=== PATIENT | male | born 2000 | race Caucasian/White ===

== ENCOUNTER 2019-01-02 12:27 | Emergency (ER) | payer SELFPAY ==
--- NOTE | 2019-01-02 13:14 | ER Document Report ---
ED Medical Screen (RME) - General Chief Complaint: Numbness of Face Stated Complaint: FACE NUMBNESS Time Seen by Provider: 01/02/19 13:09 Notes: Patient presents complaining of [id number] sensation with numbness to the face that has been off and on for the past 8 months although became constant over the past 6 hours. Patient also complains of paresthesia to the extremities and pain to the toes. Patient states that he does feel faint. Patient denies any medical history and denies taking any medications. I have greeted and performed a rapid initial assessment of this patient. A comprehensive ED assessment and evaluation of the patient, analysis of test results and completion of the medical decision making process will be conducted by additional ED providers. TRAVEL OUTSIDE OF THE [place] IN LAST 30 DAYS: No - Related Data Allergies/Adverse Reactions: No Known Allergies Allergy (Verified 01/02/19 13:04) Past Medical History - Social History Chew tobacco use (# tins/day): No Frequency of alcohol use: None Drug Abuse: None Physical Exam - Vital signs Vitals: Temp Pulse Resp BP Pulse Ox 98.9 F 90 16 130/79 H 99 01/02/19 12:33 01/02/19 12:33 01/02/19 12:33 01/02/19 12:33 01/02/19 12:33 - Cardiovascular Rhythm: Regular Heart sounds: S1 appreciated, S2 appreciated Course - Vital Signs Vital signs: Temp Pulse Resp BP Pulse Ox 98.9 F 90 16 130/79 H 99 01/02/19 12:33 01/02/19 12:33 01/02/19 12:33 01/02/19 12:33 01/02/19 12:33
[2019-01-02 14:29] LABS: ABSOLUTE LYMPHOCYTES (AUTO) 1.8 10^3/uL (0.5-4.7); ABSOLUTE MONOCYTES (AUTO) 0.6 10^3/uL (0.1-1.4); ABSOLUTE NEUT (AUTO) 5.8 10^3/uL (1.7-8.2); BASOPHILS % (AUTO) 0.4 % (0-2); EOSINOPHILS % (AUTO) 0.6 % (0-6); HEMATOCRIT 47.1 % (37.9-51.0); HEMOGLOBIN 16.1 g/dL (13.5-17.0); LYMPHOCYTES % (AUTO) 21.6 % (13-45); MEAN CORPUSCULAR HEMOGLOBIN 29.8 pg (27.0-33.4); MEAN CORPUSCULAR HGB CONC 34.1 g/dL (32.0-36.0); MEAN CORPUSCULAR VOLUME 87 fl (80-97); MONOCYTES % (AUTO) 7.8 % (3-13); PLATELET COUNT 303 10^3/uL (150-450); RED BLOOD COUNT 5.39 10^6/uL (4.35-5.55); RED CELL DISTRIBUTION WIDTH 13.7 % (11.5-14.0); SEGMENTED NEUTROPHILS % (AUTO) 69.6 % (42-78); TOTAL CELLS COUNTED % (AUTO) 100 %; WHITE BLOOD COUNT 8.3 10^3/uL (4.0-10.5)
[2019-01-02 14:38] LABS: AMORPHOUS SEDIMENT,URINE TRACE /HPF; APPEARANCE,URINE CLOUDY; BILIRUBIN,URINE NEGATIVE (NEGATIVE); COLOR,URINE YELLOW; GLUCOSE, URINE NEGATIVE (NEGATIVE); KETONES,URINE 80 mg/dL (NEGATIVE); LEUKOCYTE ESTERASE,URINE NEGATIVE (NEGATIVE); NITRITE,URINE NEGATIVE (NEGATIVE); PROTEIN,URINE NEGATIVE (NEGATIVE); URINE SPECIFIC GRAVITY 1.014; UROBILINOGEN,URINE NEGATIVE mg/dL (<2.0)
[2019-01-02 14:44] LABS: ALBUMIN 5.2 g/dL (3.5-5.0); ALKALINE PHOSPHATASE 78 U/L (38-126); ANION GAP 13 (5-19); ASPARTATE AMINO TRANSFERASE 28 U/L (17-59); BILIRUBIN,DIRECT 0.1 mg/dL (0.0-0.4); BILIRUBIN,TOTAL 2.7 mg/dL (0.2-1.3); BLOOD UREA NITROGEN 10 mg/dL (7-20); CALCIUM 10.1 mg/dL (8.4-10.2); CARBON DIOXIDE 25 mmol/L (22-30); CHLORIDE 103 mmol/L (98-107); GLUCOSE 81 mg/dL (75-110); POTASSIUM 4.2 mmol/L (3.6-5.0); TOTAL PROTEIN 8.1 g/dL (6.3-8.2)
[2019-01-02 14:50] LABS: URINE AMPHETAMINES SCREEN NEGATIVE; URINE BARBITURATES SCREEN NEGATIVE; URINE BENZODIAZEPINES SCREEN NEGATIVE; URINE COCAINE SCREEN NEGATIVE; URINE MARIJUANA (THC) SCREEN UNCONFIRMED POSITIVE; URINE METHADONE SCREEN NEGATIVE; URINE PHENCYCLIDINE SCREEN NEGATIVE
--- NOTE | 2019-01-02 16:34 | ER Document Report ---
ED General - General Chief Complaint: Numbness of Face Stated Complaint: FACE NUMBNESS Time Seen by Provider: 01/02/19 13:09 Notes: RME NOTE: Patient presents complaining of [id number] sensation with numbness to the face that has been off and on for the past 8 months although became constant over the past 6 hours. Patient also complains of paresthesia to the extremities and pain to the toes. Patient states that he does feel faint. Patient denies any medical history and denies taking any medications. MY HPI: Patient is a 18-year-old male history of depression and anxiety presents to the emergency department for multiple complaints. Patient states he did have a medical marijuana card when he lived in [place]. States he moved to [place] recently and feels as though he is more anxious. States he has been smoking marijuana with a friend. He is unsure of exactly where said friend gets the marijuana. Patient states he has had generalized tingling in his face and all 4 extremities intermittently for the last couple of months. Patient's denying any headache, nausea, vomiting, diarrhea, fevers. Patient does have a rash on his chest which he states he was diagnosed with tinea versicolor approximately 2 years ago. States he is not using any medications for same. Upon my assessment patient is denying all complaints. States initially he was feeling anxious and unsure of what was going on which is why presented to the emergency room. TRAVEL OUTSIDE OF THE [place] IN LAST 30 DAYS: No - Related Data Allergies/Adverse Reactions: No Known Allergies Allergy (Verified 01/02/19 13:04) Past Medical History - General Information source: Patient - Social History Smoking Status: Never Smoker Chew tobacco use (# tins/day): No Frequency of alcohol use: None Drug Abuse: None Family History: Reviewed & Not Pertinent Patient has suicidal ideation: No Patient has homicidal ideation: No Psychiatric Medical History: Reports: Hx Depression - anxiety Review of Systems - Review of Systems Constitutional: denies: Fever EENT: No symptoms reported Cardiovascular: denies: Chest pain, Palpitations, Dyspnea Respiratory: denies: Short of breath Gastrointestinal: No symptoms reported Genitourinary: No symptoms reported Male Genitourinary: No symptoms reported Musculoskeletal: denies: Back pain, Muscle pain, Muscle stiffness, Neck pain, Leg swelling, Ankle swelling Skin: See HPI Hematologic/Lymphatic: No symptoms reported Neurological/Psychological: Depression, Anxiety. denies: Hallucinations, Homicidal ideation, Seizure, Lost consciousness, Speech impairment, Numbness, Suicidal ideation Physical Exam - Vital signs Vitals: Temp Pulse Resp BP Pulse Ox 98.9 F 90 16 130/79 H 99 01/02/19 12:33 01/02/19 12:33 01/02/19 12:33 01/02/19 12:33 01/02/19 12:33 - Notes Notes: GENERAL: Alert, interacts well. No acute distress. HEAD: Normocephalic, atraumatic. EYES: Pupils equal, round, and reactive to light. Extraocular movements intact. ENT: Oral mucosa moist, tongue midline. NECK: Full range of motion. Supple. Trachea midline. LUNGS: Clear to auscultation bilaterally, no wheezes, rales, or rhonchi. No respiratory distress. HEART: Regular rate and rhythm. No murmur ABDOMEN: Soft, non-tender. Non-distended. Bowel sounds present in all 4 quadrants. EXTREMITIES: Moves all 4 extremities spontaneously. No edema, normal radial and dorsalis pedis pulses bilaterally. No cyanosis. 5 out of 5 strength noted all 4 extremities. BACK: no cervical, thoracic, lumbar midline tenderness. No saddle anesthesia, normal distal neurovascular exam. NEUROLOGICAL: Alert and oriented x3. Normal speech. cranial nerves II through XII grossly intact PSYCH: Normal affect, normal mood. SKIN: Warm, dry, normal turgor. Generalized flat erythematous circular intermittent lesions noted to patient's chest and bilateral upper forearms. Course - Re-evaluation Re-evalutation: 01/02/19 16:32 Laboratory 01/02/19 01/02/19 01/02/19 14:10 14:10 14:10 WBC 8.3 RBC 5.39 Hgb 16.1 Hct 47.1 MCV 87 MCH 29.8 MCHC 34.1 RDW 13.7 Plt Count 303 Lymph % (Auto) 21.6 Bay % (Auto) 7.8 Eos % (Auto) 0.6 Baso % (Auto) 0.4 Absolute Neuts (auto) 5.8 Absolute Lymphs (auto) 1.8 Absolute Monos (auto) 0.6 Absolute Eos (auto) 0.0 Absolute Basos (auto) 0.0 Seg Neutrophils % 69.6 Sodium 140.7 Potassium 4.2 Chloride 103 Carbon Dioxide 25 Anion Gap 13 BUN 10 Creatinine 0.88 Est GFR ( Amer) > 60 Est GFR (MDRD) Non-Af > 60 Glucose 81 Calcium 10.1 Total Bilirubin 2.7 H Direct Bilirubin 0.1 Neonat Total Bilirubin Not Reportable Neonat Direct Bilirubin Not Reportable Neonat Indirect Bili Not Reportable AST 28 ALT 27 Alkaline Phosphatase 78 Total Protein 8.1 Albumin 5.2 H Urine Color YELLOW Urine Appearance CLOUDY Urine pH 8.0 Ur Specific [place] 1.014 Urine Protein NEGATIVE Urine Glucose (UA) NEGATIVE Urine Ketones 80 H Urine Blood NEGATIVE Urine Nitrite NEGATIVE Urine Bilirubin NEGATIVE Urine Urobilinogen NEGATIVE Ur Leukocyte Esterase NEGATIVE Urine WBC (Auto) 5 Urine RBC (Auto) 1 Urine Bacteria (Auto) TRACE Amorphous Sediment Auto TRACE Urine Mucus (Auto) RARE Urine Ascorbic Acid NEGATIVE Urine Opiates Screen Urine Methadone Screen Ur Barbiturates Screen Ur Phencyclidine Scrn Ur Amphetamines Screen U Benzodiazepines Scrn Urine Cocaine Screen U Marijuana (THC) Screen 01/02/19 14:10 WBC RBC Hgb Hct MCV MCH MCHC RDW Plt Count Lymph % (Auto) Bay % (Auto) Eos % (Auto) Baso % (Auto) Absolute Neuts (auto) Absolute Lymphs (auto) Absolute Monos (auto) Absolute Eos (auto) Absolute Basos (auto) Seg Neutrophils % Sodium Potassium Chloride Carbon Dioxide Anion Gap BUN Creatinine Est GFR ( Amer) Est GFR (MDRD) Non-Af Glucose Calcium Total Bilirubin Direct Bilirubin Neonat Total Bilirubin Neonat Direct Bilirubin Neonat Indirect Bili AST ALT Alkaline Phosphatase Total Protein Albumin Urine Color Urine Appearance Urine pH Ur Specific [place] Urine Protein Urine Glucose (UA) Urine Ketones Urine Blood Urine Nitrite Urine Bilirubin Urine Urobilinogen Ur Leukocyte Esterase Urine WBC (Auto) Urine RBC (Auto) Urine Bacteria (Auto) Amorphous Sediment Auto Urine Mucus (Auto) Urine Ascorbic Acid Urine Opiates Screen NEGATIVE Urine Methadone Screen NEGATIVE Ur Barbiturates Screen NEGATIVE Ur Phencyclidine Scrn NEGATIVE Ur Amphetamines Screen NEGATIVE U Benzodiazepines Scrn NEGATIVE Urine Cocaine Screen NEGATIVE U Marijuana (THC) Screen UNCONFIRMED POSITIVE Patient's EKG shows sinus rhythm rate of 76, QTc 396, no ST segment elevations or depressions noted, reviewed by Dr. Cloud. Upon my assessment patient is denying all complaints. I discussed with him at length he should stop smoking marijuana unless it is medically necessary and he has a prescription for same. I have also discussed following up at [facility] as patient is uninsured. I feel as though this may be the patient's generalized anxiety. Patient was self treating with marijuana and states he has not been smoking "as much" within the last couple of months. Patient's denying suicidal homicidal ideations. At this time will discharge with return precautions and follow-up recommendations. Verbal discharge instructions given a the bedside and opportunity for questions given. Medication warnings reviewed. Patient is in agreement with this plan and has verbalized understanding of return precautions and the need for primary care follow-up in the next 24-72 hours. This medical record was dictated with voice recognizing software. There may be grammatical, syntax errors that are unintended. 01/02/19 16:35 Upon discharge patient does ask for 2 days off of work. - Vital Signs Vital signs: Temp Pulse Resp BP Pulse Ox 98.9 F 90 16 130/79 H 99 01/02/19 12:33 01/02/19 12:33 01/02/19 12:33 01/02/19 12:33 01/02/19 12:33 - Laboratory Result Diagrams: 01/02/19 14:10 01/02/19 14:10 Laboratory results interpreted by me: 01/02/19 01/02/19 14:10 14:10 Total Bilirubin 2.7 H Albumin 5.2 H Urine Ketones 80 H Discharge - Discharge Clinical Impression: Anxiety, Tinea versicolor Condition: Stable Disposition: HOME, SELF-CARE Instructions: Anxiety ([facility]), Tinea Versicolor ([facility]) Additional Instructions: As we discussed you have been seen and treated in the emergency department for your possible anxiety and a rash called tinea versicolor. Please use prescripti on topical cream as prescribed. Please also make sure you follow-up at clinics mentioned for anxiety and depression care. You can also follow-up at [facility] for medical attention. Please return to the emergency room for any concerns. Prescriptions: Selenium Sulfide 120 ml TP DAILY 21 Days lotion Forms: Return to Work Referrals: [facility] [Provider Group] - Follow up as needed [facility] [Provider Group] - Follow up as needed [facility] [Provider Group] - Follow up as needed [facility] [Provider Group] - Follow up as needed
[2019-01-02 16:51] VITALS: BP 134/68
--- NOTE | 2019-01-03 00:47 | EKG REPORT ---
SEVERITY:- NORMAL ECG - SINUS RHYTHM : Confirmed by: Robin Marti 03-Jan-2019 00:46:58
== END 2019-01-02 16:51 | disposition home or self-care (01) ==
LOC: ER 12:27
DX: B36.0 Pityriasis versicolor (principal); F41.9 Anxiety disorder, unspecified; R20.2 Paresthesia of skin; R42 Dizziness and giddiness; F32.9 Major depressive disorder, single episode, unspecified; F12.90 Cannabis use, unspecified, uncomplicated; R21 Rash and other nonspecific skin eruption
CPT/HCPCS: 36415; 80053; 80307; 81001; 85025; 93005; 93010; 99284